=== PATIENT | female | born 1965 | race Caucasian/White ===

== ENCOUNTER 2018-05-10 13:14 | Emergency (ER) | payer SELFPAY ==
[~2018-05-10] VITALS: Ht 168.9 cm; Wt 73.0 kg
[~2018-05-10 13:14] MED LIST: FAMO-79 PO; FURO-93 PO; IBUP-1484 PO; SIME125C PO
[2018-05-10 15:06] VITALS: BP 127/83
== END 2018-05-10 15:08 | disposition home or self-care (01) ==
LOC: ED 13:48
DX: S16.1XXA Strain of muscle, fascia and tendon at neck level, initial encounter (principal); S00.83XA Contusion of other part of head, initial encounter; W01.198A Fall on same level from slipping, tripping and stumbling with subsequent striking against other object, initial encounter; Z90.710 Acquired absence of both cervix and uterus; Y93.E9 Activity, other interior property and clothing maintenance; Y92.091 Bathroom in other non-institutional residence as the place of occurrence of the external cause; Y99.8 Other external cause status
CPT/HCPCS: 70450; 72125; 99284